=== PATIENT | male | born 1970 | race Caucasian/White ===

== ENCOUNTER 2018-05-27 02:04 | Emergency (ER) | payer MEDICAID ==
[~2018-05-27] VITALS: Ht 170.2 cm; Wt 72.7 kg
[~2018-05-27 02:04] MED LIST: KEFLEX
[2018-05-27 02:11] VITALS: BP 206/120
--- NOTE | 2018-05-27 02:14 | NUR ---
PT TAKEN TO BED 4
--- NOTE | 2018-05-27 02:17 | NUR ---
Dr. Todd evaluating patient at bedside.
--- NOTE | 2018-05-27 02:17 | NUR ---
BIB FRIEND PATIENT PRESENTS TO ED WITH CHEST PAIN. PT STATES TO HAVING SUDDEN ONSET OF CHEST PAIN AT 11OO AM ON 05/26/18; +NAUSEA. DENIES V/D; SKIN IS PINK/WARM/DRY; AAOX4 WITH EVEN AND STEADY GAIT; LUNGS CLEAR BL; HR EVEN AND REGULAR; PT DENIES ANY FEVER, SOB, OR COUGH AT THIS TIME; PATIENT STATES PAIN OF 9/10 AT THIS TIME; BP 197/107 PATIENT POSITIONED FOR COMFORT; HOB ELEVATED; BEDRAILS UP X2; BED DOWN. ER MD MADE AWARE OF PT STATUS. PMH: DENIES
[2018-05-27] MEDS ORDERED: ASPIRIN 81 MG TAB.CHEW PO ONE (02:20)
[2018-05-27] MEDS ORDERED: MORPHINE SULFATE 4 MG/ML SYR IVP ONE (02:20)
--- NOTE | 2018-05-27 02:33 | NUR ---
LAB AT BEDSIDE.
--- NOTE | 2018-05-27 02:37 | NUR ---
X-RAY AT BEDSIDE.
[2018-05-27] MEDS ORDERED: NITROGLYCERIN 0.4 MG TAB SL ONE (02:40)
[2018-05-27 02:45] LABS: BASOPHILS % (AUTO) 0.1 % (0.0-2.0); EOSINOPHILS % (AUTO) 0.1 % (0.0-4.0); HEMATOCRIT 40.2 % (36-52); HEMOGLOBIN 13.4 g/dL (12.0-18.0); LYMPHOCYTES # (AUTO) 0.7 K/uL (2.0-11.5); MEAN CORPUSCULAR HEMOGLOBIN 29 pg (27-31); MEAN CORPUSCULAR HGB CONC 33 g/dL (33-37); MEAN CORPUSCULAR VOLUME 87.4 fL (80-94); MONOCYTES # (AUTO) 0.3 K/uL (0.8-1.0); MONOCYTES % (AUTO) 2.4 % (1.7-9.3); NEUTROPHILS # (AUTO) 10.8 K/uL (1.8-7.7); NEUTROPHILS % (AUTO) 91.2 % (42.2-75.2); PLATELET COUNT (AUTO) 235 K/uL (140-450); RED CELL DISTRIBUTION WIDTH 13.4 % (11.6-13.7); WHITE BLOOD COUNT (AUTO) 11.8 K/uL (4.8-10.8)
[2018-05-27 02:55] LABS: APPEARANCE,URINE CLEAR (CLEAR); BILIRUBIN,URINE NEGATIVE (NEGATIVE); BLOOD, URINE 3+ (NEGATIVE); COLOR,URINE YELLOW (YELLOW); LEUKOCYTE ESTERASE ,URINE NEGATIVE (NEGATIVE); NITRITE, URINE NEGATIVE (NEGATIVE); PH,URINE 6.5 (5.0-9.0); UGLUCOSE TRACE (NEGATIVE)
[2018-05-27 02:57] LABS: ANION GAP 9.5 (8-16); CARBON DIOXIDE 25.8 mmol/L (21-32); CREATININE 0.9 mg/dL (0.7-1.3); POTASSIUM 3.3 mmol/L (3.5-5.1)
[2018-05-27 02:58] LABS: LYMPHOCYTES % (AUTO) 6.2 % (20.5-51.1)
[2018-05-27 03:03] LABS: TOTAL BILIRUBIN 0.4 mg/dL (0.0-1.0)
[2018-05-27 03:03] LABS: RBC,URINE TOO NUMEROUS TO COUN /HPF (0-5); WBC,URINE 0-5 (RARE) /HPF (0-5)
--- NOTE | 2018-05-27 03:13 | NUR ---
PT TAKEN TO CT
[2018-05-27 03:14] LABS: ALBUMIN 4.2 g/dL (3.4-5.0)
[2018-05-27 03:15] LABS: BARBITURATE, URINE NEG. ng/ml (NEG <=200); BENZODIAZEPINE, URINE NEG. ng/mL (NEG <=200); CANNABINOID, URINE NEG. ng/mL (NEG <=50); COCAINE, URINE NEG. ng/mL (NEG <=300); OPIATE, URINE NEG. ng/mL (NEG <=2000); PHENCYCLIDINE SCREEN,URINE NEG. ng/mL (NEG <=25)
[2018-05-27] MEDS ORDERED: hydrALAZINE 20 MG/ML VIAL IVP ONE (03:55)
--- NOTE | 2018-05-27 04:28 | NUR ---
Patient discharged with v/s stable. Written and verbal after care instructions given and explained. Patient alert, oriented and verbalized understanding of instructions. Ambulatory with steady gait. All questions addressed prior to discharge. ID band removed. Patient advised to follow up with PMD. Rx of Ibuprofen, Flagyl, Cipro, and Hydrochlorothiazide given. Patient educated on indication of medication including possible reaction and side effects. Opportunity to ask questions provided and answered.
[2018-05-27 04:33] VITALS: BP 176/101
== END 2018-05-27 04:28 | disposition home or self-care (01) ==
LOC: MED 02:04
DX: R07.9 Chest pain, unspecified (principal); N20.0 Calculus of kidney; I10 Essential (primary) hypertension; E87.6 Hypokalemia; K52.9 Noninfective gastroenteritis and colitis, unspecified; Z79.899 Other long term (current) drug therapy
CPT/HCPCS: 36415; 71045; 74176; 80053; 80305; 81001; 84484; 85025; 96374; 96375; 99284; J0360; J2270; Q0092; 93005